=== PATIENT | male | born 1975 | race Caucasian/White ===

== ENCOUNTER 2022-11-13 13:23 | Emergency (ER) | payer MEDICARE ==
[2022-11-13] MEDS ORDERED: TAM75CAP PO (15:09)
[2022-11-13 15:23] VITALS: BP 128/83
== END 2022-11-13 15:24 | disposition home or self-care (01) ==
LOC: ED 13:23
DX: J10.1 Influenza due to other identified influenza virus with other respiratory manifestations (principal); Z20.822 Contact with and (suspected) exposure to COVID-19

== ENCOUNTER 2022-11-23 23:54 | Emergency (ER) | payer MEDICARE ==
[~2022-11-23 23:54] MED LIST: TAM75CAP PO
[2022-11-24 00:41] VITALS: BP 135/77
[2022-11-24 00:45] VITALS: BP 128/84
[2022-11-24] MEDS ORDERED: VOLTAREN - GENE75 MG PO (01:51)
[2022-11-24 01:59] VITALS: BP 135/77
== END 2022-11-24 02:04 | disposition home or self-care (01) ==
LOC: ED 23:54
DX: S39.012A Strain of muscle, fascia and tendon of lower back, initial encounter (principal); S30.0XXA Contusion of lower back and pelvis, initial encounter; W01.0XXA Fall on same level from slipping, tripping and stumbling without subsequent striking against object, initial encounter; Y93.E9 Activity, other interior property and clothing maintenance

== ENCOUNTER 2023-09-05 20:22 | Emergency (ER) | payer MEDICARE ==
[~2023-09-05] VITALS: Ht 175.3 cm; Wt 57.6 kg
[~2023-09-05 20:22] MED LIST changes: +VOLTAREN - GENE75 MG PO
[2023-09-05] MEDS ORDERED: KLONOPIN1 MG PO (20:46)
[2023-09-05] MEDS ORDERED: CLONIDINE0.2 MG PO (20:46)
[2023-09-05] MEDS ORDERED: HALOPERIDOL2 MG PO (20:47)
[2023-09-05] MEDS ORDERED: NEXIUM40 M1 PO (20:47)
[2023-09-05] MEDS ORDERED: LAMICTAL200 M1 PO (20:48)
[2023-09-05 22:32] VITALS: BP 103/70
== END 2023-09-05 22:48 | disposition home or self-care (01) ==
LOC: ED 20:22
DX: S16.1XXA Strain of muscle, fascia and tendon at neck level, initial encounter (principal); I10 Essential (primary) hypertension; W18.30XA Fall on same level, unspecified, initial encounter; Y92.89 Other specified places as the place of occurrence of the external cause

== ENCOUNTER 2024-07-03 13:54 | Emergency (ER) | payer MEDICARE ==
[~2024-07-03] VITALS: Ht 175.3 cm; Wt 53.0 kg
[~2024-07-03 13:54] MED LIST changes: +CLONIDINE0.2 MG PO; +HALOPERIDOL2 MG PO; +KLONOPIN1 MG PO; +LAMICTAL200 M1 PO; +NEXIUM40 M1 PO
[2024-07-03 14:12] VITALS: BP 151/91
[2024-07-03] MEDS ORDERED: ONDANSETRON 4 MG/TAB ODT PO ONE (14:25)
[2024-07-03] MEDS ORDERED: cloNIDine HCL 0.1 MG/TAB PO ONE (14:25)
[2024-07-03] MEDS ORDERED: clonazePAM 1 MG/TAB PO ONE (14:25)
[2024-07-03 14:30] VITALS: BP 131/77
[2024-07-03] MEDS ORDERED: KLONOPIN1 MG PO (14:47)
[2024-07-03] MEDS ORDERED: CLONIDINE0.1 MG PO (14:47)
[2024-07-03 15:00] VITALS: BP 131/77
[2024-07-05] MEDS ORDERED: KLONOPIN1 MG PO (07:08)
[2024-07-05] MEDS ORDERED: CLONIDINE0.1 MG PO (07:08)
== END 2024-07-03 15:05 | disposition home or self-care (01) ==
LOC: ED 13:54
DX: Z76.0 Encounter for issue of repeat prescription (principal); F41.9 Anxiety disorder, unspecified; I10 Essential (primary) hypertension; F20.9 Schizophrenia, unspecified

== ENCOUNTER 2024-07-22 17:59 | Observation (INO) | payer MEDICARE ==
[~2024-07-22] VITALS: Ht 175.3 cm; Wt 56.7 kg
[~2024-07-22 17:59] MED LIST changes: +CLONIDINE0.1 MG PO
--- NOTE | 2024-07-22 18:46 | NUR ---
PATIENT TO ROOM 10
--- NOTE | 2024-07-22 19:00 | NUR ---
RECIEVED REPORT FROM BRUNA MARCELINO.
[2024-07-22 19:01] VITALS: BP 111/68
[2024-07-22 19:13] LABS: BASO% 0.5 % (0-3); EOS% 2.6 % (0-8); HEMATOCRIT 25.1 % (39.0-50.0); HEMOGLOBIN 7.7 g/dl (14.0-18.0); IMMATURE GRANULOCYTES 0.5 % (0.0-5.0); LYMPH% 21.9 % (15-41); MEAN CELL VOLUME 83.1 fL CALC (80.0-100.0); MEAN CORPUSCULAR HGB 25.5 pG CALC (26.0-32.0); MEAN CORPUSCULAR HGB CONC 30.7 g/dL CAL (32.0-36.0); NEUT# 4.01 thou/uL (1.82-7.42); NEUT% 65.5 % (42-76); RED BLOOD COUNT 3.02 mill/uL (4.70-6.10); RED CELL DISTRI WIDTH 17.4 % (11.5-15.5)
[2024-07-22 19:19] LABS: ALBUMIN 3.1 g/dL (3.2-5.0); ALKALINE PHOSPHATASE 259 u/l (38-126); ANION GAP 11 (6-22 (CALC)); BILIRUBIN, TOTAL 0.4 mg/dL (0.2-1.3); BUN 9 mg/dL (9-20); BUN/CREATININE RATIO 11 (12-20 (CALC)); CARBON DIOXIDE 29 mmol/l (22-30); CHLORIDE 96 mmol/l (95-108); CREATININE 0.9 mg/dL (0.7-1.3); ESTIMATED GFR 105 ML/MIN (>=90 (CALC)); POTASSIUM 3.9 mmol/l (3.5-5.1); SGOT/AST 29 u/l (17-59); SODIUM 132 mmol/l (137-146); TOTAL PROTEIN 5.9 g/dL (6.3-8.2)
[2024-07-22] MEDS ORDERED: AZITHROMYCIN 500 MG in SODIUM CHLORIDE 0.9% 500 ML IV ONE (20:00)
--- NOTE | 2024-07-22 20:12 | NUR ---
CLAY THROWER AND FURNITURE DELIVERY DRIVER EDUCATED PT ON RECTAL EXAM. PT STATES "I DON'T WANT YOU ANYWHERE NEAR MY AREA." PT EDUCATED ON NEED FOR RECTAL EXAM, PT CONTINUES TO REFUSE.
[2024-07-22] MEDS ORDERED: PALIPERIDONE ER3 MG PO (20:35)
[2024-07-22] MEDS ORDERED: QUETIAPINE FUM100 MG PO (20:37)
[2024-07-22] MEDS ORDERED: DESVENLAFAXINE100 M2 PO (20:37)
[2024-07-22] MEDS ORDERED: REMERON30 MG PO (20:38)
[2024-07-22] MEDS ORDERED: DEXTROSE 250 ML IV PRN (21:05)
--- NOTE | 2024-07-22 22:19 | NUR ---
PT REPORT CALLED TO [facility] TO [facility].
--- NOTE | 2024-07-22 23:05 | NUR ---
PATIENT DECIDES TO LEAVE AMA. REPORTS IF HE DOES NOT HAVE HIS SUBOXONE HE WILL NOT STAY, PATIENT REPORTS THE ALTERNATIVE WOULD BE SUBUTEX. INFORMED PATIENT WE DO NOT HAVE EITHER IN STOCK. PATIENT'S STATES "I WAS NOT THE ONE WHO FORGOT YOUR MEDICINE AT HOME, IT WAS YOU" DR SAHA CALLED AND INFORMED PATIENT/ THAT THE DR WOULD LIKE TO REDRAW HIS HEMOGLOBIN. PATIENT STATES NO THAT HE WILL BE BACK IN THE MORNING FOR HIS MRI. PATIENT REFUSED BLOOD REDRAW AND REFUSED TO COMPLETE HIS ANTIBIOTICS. DR LAM CALLED AND NOTIFIED OF PATIENTS DECICION.
== END 2024-07-22 22:57 | disposition left against medical advice (07) ==
LOC: ED 17:59 → ED-I 19:54 → ED 20:08 → MS2 20:09
PROVIDERS: Nurse Practitioner; ADMIT Internal Medicine; ATTEND Internal Medicine
DX: J18.9 Pneumonia, unspecified organism (principal); D64.9 Anemia, unspecified; R53.1 Weakness; I10 Essential (primary) hypertension; F20.9 Schizophrenia, unspecified; R07.89 Other chest pain
CPT/HCPCS: J0456; J0696

== ENCOUNTER 2024-07-28 12:41 | Observation (INO) | payer MEDICARE ==
--- NOTE | 2024-07-28 12:25 | NUR ---
PATIENT ARRIVED TO [place] TO ROOM 278 VIA WC. PATIENT A&OX4. BREATHING UNLABORED ON ROOM AIR. IV IN RFA INFUSING FLUIDS PER MD. AT BEDSIDE. ASSESSMENT COMPLETED. PT STATES TO HAVE SOME PAIN IN IS RIB CAGE;NO MEDICATION ORDERS IN AT THIS TIME;PT AWARE. DENIES ANY N/D/V. PERSONAL BELONGINGS PUT AWAY/WITH . 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 BED IN LOWEST POSITION. CALL LIGHT WITHIN REACH WELL PERSONAL ITEMS. POC ONGOING.
[~2024-07-28 12:41] MED LIST changes: +DESVENLAFAXINE100 M2 PO; +PALIPERIDONE ER3 MG PO; +QUETIAPINE FUM100 MG PO; +REMERON30 MG PO
[2024-07-28 13:27] VITALS: BP 138/87
[2024-07-28] MEDS ORDERED: LORazepam 0.5 MG/TAB PO PRN (14:00)
[2024-07-28] MEDS ORDERED: ALUM & MAG HYDROX-SIMETHICONE 30 ML PO PRN (14:00)
[2024-07-28] MEDS ORDERED: ACETAMINOPHEN 325 MG/TAB PO PRN (14:00)
[2024-07-28] MEDS ORDERED: Polyethylene Glycol 3350 17 GM/PKT PO PRN (14:00)
[2024-07-28 14:12] LABS: BASO% 0.7 % (0-3); EOS% 1.9 % (0-8); HEMATOCRIT 29.6 % (39.0-50.0); HEMOGLOBIN 9.4 g/dl (14.0-18.0); IMMATURE GRANULOCYTES 0.2 % (0.0-5.0); LYMPH% 23.3 % (15-41); MEAN CELL VOLUME 85.5 fL CALC (80.0-100.0); MEAN CORPUSCULAR HGB 27.2 pG CALC (26.0-32.0); MEAN CORPUSCULAR HGB CONC 31.8 g/dL CAL (32.0-36.0); MONO% 5.8 % (2-13); NEUT% 68.1 % (42-76); RED BLOOD COUNT 3.46 mill/uL (4.70-6.10); RED CELL DISTRI WIDTH 17.5 % (11.5-15.5)
[2024-07-28 14:26] LABS: ALBUMIN 2.8 g/dL (3.2-5.0); CREATININE 0.8 mg/dL (0.7-1.3); TOTAL PROTEIN 5.5 g/dL (6.3-8.2)
[2024-07-28 14:27] LABS: BILIRUBIN, TOTAL 0.6 mg/dL (0.2-1.3); POTASSIUM 4.7 mmol/l (3.5-5.1)
--- NOTE | 2024-07-28 15:02 | NUR ---
UPON ENTERING PT'S ROOM, THE ROOM IS FULL OF SMOKE AND SMELLS FRUITY. A VAPE IS SEEN ON PATIENTS CHEST. PT STATES HE'S JUST "HOLDING IT". PT INFORMED THAT THIS IS A SMOKE FREE FACILTY AND VAPING IS NOT TOLERATED. HANDED OVER VAPE AND INFORMED THAT SHE CAN TAKE IT HOME WITH HER WHEN SHE LEAVES OR PT CAN GET IT BACK WHEN DISCHARGED. AND PT VERBALIZED UNDERSTANDING.
[2024-07-28] MEDS ORDERED: CLONIDINE0.2 MG PO (15:42)
[2024-07-28] MEDS ORDERED: CLONAZEPAM1 M1 PO (15:49)
[2024-07-28] MEDS ORDERED: SUBOXONE1 MI3 SL (16:10)
--- NOTE | 2024-07-28 16:35 | NUR ---
REVIEWED PT MED REC WITH PT AND AT BEDSIDE. COUNTED SUBOXONE WITH PT AND . PATIENTS PULLED ANOTHER SUBOXONE FILM AWAY FROM PATIENT DUE TO HIM HIDING IT. IN TOTAL 27 FILMS COUNTED. PT AND SELF SIGNED. GIVEN TO PHARMACY.
[2024-07-28 18:30] VITALS: BP 146/85
[2024-07-28] MEDS ORDERED: IBUPROFEN 600 MG/TAB PO PRN (19:45)
--- NOTE | 2024-07-28 20:30 | NUR ---
PT RESTING IN BED NO DISTRESS NOTED ON ASSESSMENT. PT ASKING FOR IBUPROFEN FOR A HEADACHE AND RIB PAIN 01/10. VS WNL ON RA LUNGS CLEAR. IV FLUSHED WORKING PROPERLY SL. SKIN INTACT. PT REPORTS STILL HAVING WEAKNESS ON RIGHT SIDE. PT ABLE TO AMBULATE IN HARVEY WITHOUT ANY ASSISTANCE OR UNBLANCE. CALL LIGHT WITHIN REACH. PLAN OF CARE ONGOING.
[2024-07-28] MEDS ORDERED: PALIPERIDONE 9 MG PO SCH (21:00)
[2024-07-28] MEDS ORDERED: SUBOXONE SL SCH (21:00)
[2024-07-28] MEDS ORDERED: lamoTRIgine 100 MG/TAB PO SCH (21:00)
--- NOTE | 2024-07-28 22:00 | NUR ---
PT WALKING IN HARVE[place] WITHOUT ASSISTANCE OR UNBLANCE.
--- NOTE | 2024-07-28 22:45 | NUR ---
NURSE GAVE SPOUSE UPDATE ON PT. PT INFORM SPOUSE THAT HE HAD A LEFT SIDED STROKE. NURSE INFORM SPOUSE THAT PT WAS NOT GIVEN THAT INFORMATION THAT PROVIDER WILL GO OVER HIS RESULTS TOMORROW DURING ROUNDS.
[2024-07-28 23:49] VITALS: BP 110/64
--- NOTE | 2024-07-29 | NUR ---
PT RESTING IN BED ON THE PHONE NO DISTRESS NOTED. CALL LIGHT WITHIN REACH. PLAN OF CARE ONGOING.
--- NOTE | 2024-07-29 04:00 | NUR ---
PT SLEEPING EASILY AROUSABLE NO DISTRESS NOTED. CALL LIGHT WITHIN REACH. PLAN OF CARE ONGOING.
[2024-07-29 04:08] VITALS: BP 114/67
[2024-07-29 05:40] LABS: ALBUMIN 2.8 g/dL (3.2-5.0); BILIRUBIN, TOTAL 0.4 mg/dL (0.2-1.3); CREATININE 0.8 mg/dL (0.7-1.3); MAGNESIUM 1.7 mg/dL (1.6-2.3); POTASSIUM 4.5 mmol/l (3.5-5.1); TOTAL PROTEIN 5.5 g/dL (6.3-8.2)
[2024-07-29 05:44] LABS: BASO% 0.9 % (0-3); EOS% 3.5 % (0-8); HEMATOCRIT 31.3 % (39.0-50.0); HEMOGLOBIN 9.9 g/dl (14.0-18.0); LYMPH% 32.8 % (15-41); MEAN CELL VOLUME 84.8 fL CALC (80.0-100.0); MEAN CORPUSCULAR HGB 26.8 pG CALC (26.0-32.0); MEAN CORPUSCULAR HGB CONC 31.6 g/dL CAL (32.0-36.0); MONO% 11.3 % (2-13); NEUT# 2.23 thou/uL (1.82-7.42); NEUT% 51.5 % (42-76); RED BLOOD COUNT 3.69 mill/uL (4.70-6.10); RED CELL DISTRI WIDTH 17.5 % (11.5-15.5)
[2024-07-29 06:35] VITALS: BP 119/70
[2024-07-29] MEDS ORDERED: DESVENLAFAXINE 100 MG PO SCH (09:00)
--- NOTE | 2024-07-29 10:35 | NUR ---
Patient alert and oriented x4, significant other at bedside, patient stable, no complaims of pain discharge instructions were discussed with patient, patient verbalized undestanding, PIV removed successfully, home medication returned to patient before discharge.
--- NOTE | 2024-08-04 11:27 | NUR ---
Discharge follow up call completed 08/04/24. Patient states he is not doing well and plans to go to another [facility] to get another MRI imaging. Patient statesd he was working and hung up.
== END 2024-07-29 10:25 | disposition home or self-care (01) ==
LOC: MS2 12:41
PROVIDERS: Nurse Practitioner Family; ADMIT Internal Medicine; ATTEND Internal Medicine
DX: D64.9 Anemia, unspecified (principal); I95.9 Hypotension, unspecified; R53.1 Weakness; R47.81 Slurred speech; R41.0 Disorientation, unspecified; G40.909 Epilepsy, unspecified, not intractable, without status epilepticus; F20.9 Schizophrenia, unspecified
CPT/HCPCS: P9016

== ENCOUNTER 2024-10-15 15:07 | Emergency (ER) | payer MEDICARE ==
[~2024-10-15] VITALS: Ht 175.3 cm; Wt 58.0 kg
[~2024-10-15 15:07] MED LIST changes: +CLONAZEPAM1 M1 PO; +SUBOXONE1 MI3 SL
[2024-10-15 15:34] VITALS: BP 98/64
[2024-10-15 15:44] VITALS: BP 104/61
[2024-10-15 16:00] VITALS: BP 95/59
[2024-10-15 16:04] LABS: BASO% 0.3 % (0-3); EOS% 3.9 % (0-8); HEMATOCRIT 34.6 % (39.0-50.0); HEMOGLOBIN 10.7 g/dl (14.0-18.0); IMMATURE GRANULOCYTES 0.2 % (0.0-5.0); LYMPH% 26.6 % (15-41); MEAN CELL VOLUME 87.6 fL CALC (80.0-100.0); MEAN CORPUSCULAR HGB 27.1 pG CALC (26.0-32.0); MEAN CORPUSCULAR HGB CONC 30.9 g/dL CAL (32.0-36.0); MONO% 10.5 % (2-13); NEUT# 3.46 thou/uL (1.82-7.42); NEUT% 58.5 % (42-76); RED BLOOD COUNT 3.95 mill/uL (4.70-6.10); RED CELL DISTRI WIDTH 15.7 % (11.5-15.5)
[2024-10-15 16:08] LABS: URINE BILIRUBIN - DIPSTICK Negative (NEGATIVE); URINE BLOOD DIPSTICK Negative (NEGATIVE); URINE GLUCOSE - DIPSTICK Negative (NEGATIVE); URINE KETONE Negative (NEGATIVE); URINE LEUK ESTERASE Negative (NEGATIVE); URINE NITRITE - DIPSTICK Negative (Negative); URINE PROTEIN - DIPSTICK Negative (NEG-TRACE); URINE SPECIFIC GRAVITY <=1.005; URINE UROBILINOGEN - DIPSTICK 0.2 E.U./dL (0.2)
[2024-10-15 16:10] LABS: URINE COLOR Yellow
[2024-10-15 16:15] VITALS: BP 96/62
[2024-10-15 16:15] LABS: BILIRUBIN, TOTAL 0.4 mg/dL (0.2-1.3); CREATININE 0.8 mg/dL (0.7-1.3); TOTAL PROTEIN 7.1 g/dL (6.3-8.2)
[2024-10-15 16:16] LABS: POTASSIUM 3.7 mmol/l (3.5-5.1)
[2024-10-15 16:30] VITALS: BP 110/76
[2024-10-15 16:36] VITALS: BP 110/76
== END 2024-10-15 16:42 | disposition home or self-care (01) ==
LOC: ED 15:07
PROVIDERS: Family Medicine
DX: D64.9 Anemia, unspecified (principal); G40.909 Epilepsy, unspecified, not intractable, without status epilepticus